=== PATIENT | male | born 1965 | race Caucasian/White ===

== ENCOUNTER 2016-09-22 11:18 | Emergency (ER) | payer OTHER ==
[2016-09-22] MEDS ORDERED: fentaNYL 100 MCG/2 ML SDV IVPUSH ONE ×3 (11:26→13:38)
[2016-09-22] MEDS ORDERED: Sodium Chloride 0.9% 10 ML Syringe FLUSH PRN (11:26)
--- NOTE | 2016-09-22 11:34 | EDM.PDOC ---
ED HPI LOWER BACK PAIN/INJURY - General Chief Complaint: Back Pain or Injury Stated Complaint: Fall, low back pain Time Seen by Provider: 09/22/16 11:20 Source of Information: Reports: Patient, RN notes reviewed History Limitations: Reports: No limitations - History of Present Illness INITIAL COMMENTS - FREE TEXT/NARRATIVE: 51 year old male presents to the ED via [facility] after a fall at home. He was ambulating on concrete and slipped. He fell directly onto his buttocks. He has pain to his low back. The pain does radiate into his upper back and into his right shoulder. The pain is excruciating and say "it shot pain up my back when I fell." He denies numbness, tingling, weakness or loss of bowel/bladder function. He has no hip pain. He is able to move both legs but was unable to get up and ambulate after the fall. He says he may have had a brief LOC but isn' t sure. He has no neck pain or headache. Denies hitting his head. He was given 200mcg of Fentanyl and 4mg of Versed [employer]. He continues to have severe amounts of pain and does feel he is experiencing muscle spasms. He is on high amounts of hydrocodone, gabapentin, and muscle relaxers due to chronic back and hip pain. He has a history of a "degenerative bone condition." He says he has not received a specific diagnosis but has required several surgeries. He has fusion of L4, L5, and S1 at [facility] and has had several hip surgeries in [place]. - Related Data Allergies/ADRs: Allergies Allergy/AdvReac Type Severity Reaction Status Date / Time hydromorphone [From Dilaudid] Allergy Hives Verified 09/22/16 11:31 levofloxacin [From Levaquin] Allergy Hives Verified 05/07/15 08:31 morphine Allergy Hives Verified 05/07/15 08:31 Home Meds: Home Meds Gabapentin [Neurontin] 800 mg PO TID 05/07/15 [History] buPROPion [Wellbutrin XL] 300 mg PO DAILY 05/07/15 [History] Methocarbamol 750 mg PO DAILY 09/22/16 [History] Past Medical History Other Cardiovascular History: Rheumatic fever in the 5th grade Other Gastrointestinal History: celiac disease Social & Family History - Tobacco Use Smoking Status *Q: Never Smoker - Recreational Drug Use Recreational Drug Use: No - Living Situation & Occupation Living situation: Reports: , with spouse, with family Occupation: employed ED ROS GENERAL - Review of Systems Review Of Systems: See Below Constitutional: Reports: no symptoms. Denies: fever, chills Respiratory: Reports: No Symptoms. Denies: Shortness of Breath Cardiovascular: Reports: No symptoms. Denies: Chest pain GI/Abdominal: Reports: No symptoms. Denies: Abdominal pain, Nausea, Vomiting : Reports: no symptoms. Denies: incontinence Musculoskeletal: Reports: back pain Neurological: Reports: No Symptoms. Denies: Numbness, Tingling, Weakness ED EXAM,LOWER BACK PAIN/INJURY - Physical Exam Exam: See Below Exam Limited By: No limitations General Appearance: alert, WD/WN, anxious, severe distress Respiratory/Chest: no respiratory distress, lungs clear, normal breath sounds Cardiovascular: regular rate, rhythm GI/Abdominal: normal bowel sounds, soft, non tender, no distention Back Exam: muscle spasm, paraspinal tenderness (low back ), vertebral tenderness (lumbar spine and SI joints ) Extremities: normal inspection, normal range of motion, other (moving bilateral legs without difficulty. No hip pain. CMS intact. ) Neurological: alert, normal mood/affect, normal dorsiflexion, normal plantar flexion, no motor/sensory deficits, oriented x 3 Skin Exam: Warm, Dry, Intact Course - Vital Signs Last Recorded V/S: Last Vital Signs Temp 97.8 F 09/22/16 11:27 Pulse 70 09/22/16 15:40 Resp 16 09/22/16 15:40 BP 119/91 H 09/22/16 15:40 Pulse Ox 98 09/22/16 15:40 - Orders/Labs/Meds Orders: Active Orders 24 hr Category Date Time Status Peripheral IV Care [RC] . DIRECTED Care 09/22/16 11:27 Active Peripheral IV Insertion Adult [OM.PC] Stat Oth 09/22/16 11:26 Ordered Meds: Medications Discontinued Medications Generic Name Dose Route Start Last Admin Trade Name Freq PRN Reason Stop Dose Admin Hydrocodone Bitart/Acetaminophen 2 tab 09/22/16 13:39 09/22/16 14:06 [place] 325-10 Mg PO 09/22/16 13:40 2 tab ONETIME ONE Administration Diazepam 5 mg 09/22/16 11:27 09/22/16 11:37 Valium IV 09/22/16 11:28 5 mg ONETIME ONE Administration Diazepam 5 mg 09/22/16 13:10 09/22/16 13:26 Valium IVPUSH 09/22/16 13:11 Not Given ONETIME ONE Diazepam 5 mg 09/22/16 13:15 09/22/16 13:20 Valium IVPUSH 09/22/16 13:16 5 mg ONETIME ONE Administration Fentanyl 100 mcg 09/22/16 11:26 09/22/16 11:33 Sublimaze IVPUSH 09/22/16 11:27 100 mcg ONETIME ONE Administration Fentanyl 100 mcg 09/22/16 12:23 09/22/16 12:32 Sublimaze IVPUSH 09/22/16 12:24 100 mcg ONETIME ONE Administration Fentanyl 100 mcg 09/22/16 13:38 09/22/16 13:50 Sublimaze IVPUSH 09/22/16 13:39 100 mcg ONETIME ONE Administration Gabapentin 200 mg 09/22/16 13:38 09/22/16 14:04 Neurontin PO 09/22/16 13:39 200 mg ONETIME ONE Administration Gabapentin 600 mg 09/22/16 14:00 09/22/16 14:05 Neurontin PO 09/22/16 14:01 600 mg ONETIME ONE Administration Methocarbamol 750 mg 09/22/16 13:38 09/22/16 14:03 Robaxin PO 09/22/16 13:39 750 mg ONETIME ONE Administration Sodium Chloride 10 ml 09/22/16 11:26 09/22/16 11:40 Saline Flush FLUSH 10 ml ASDIRECTED PRN Administration Keep Vein Open - Re-Assessments/Exams Free Text/Narrative Re-Assessment/Exam: 1330 CTs of thoracic spine, lumbar spine, and pelvis read by Dr. Quiroz. No acute findings found. Please see full reports. Patient notified of results. He has no concerning neurologic deficits. Patient has some relief with Fentanyl and Versed however the relief is very short. He is due for his chronic pain medications. Will administer his usual regimen of 10/325mg norco x2 tabs, 800mg gabapentin, and 750mg of robaxin. Will also give an additional dose of Fentayl at this time for immediate pain relief. Will continue to monitor the patient's pain level. Discussed admission if we are unable to get his pain to an acceptable level on oral medications. 1500 Patient reports that his pain has significantly improved. He has his back brace on and feels he is ready to be discharged. His home is handicapped accessible. He would is able to ambulate with tolerable pain. He was instructed to f/u with his pain specialist next week as scheduled. Educated on return precautions and encouraged to return if his pain worsens or develops signs of saddle anesthesia. He has a ride home. Departure - Departure Time of Disposition: 15:17 Disposition: Home, Self-Care 01 Condition: good Clinical Impression: Low back pain Qualifiers: Chronicity: acute Back pain laterality: midline Sciatica presence: without sciatica Qualified Code(s): M54.5 - Low back pain Instructions: Back Pain, Adult Referrals: Jayde De La Paz PA-C [Primary Care Provider] - Forms: ED Department Discharge Additional Instructions: Continue your current pain management regimen Follow-up with your pain specialist as scheduled Return to ER with worsening of pain, loss of bowel or bladder function, or any additional concerns Wear your back brace as directed. No driving today due to sedating medications given in the ED. - My Orders Last 24 Hours: My Active Orders 09/22/16 11:26 Peripheral IV Insertion Adult [OM.PC] Stat 09/22/16 11:27 Peripheral IV Care [RC] . DIRECTED - Assessment/Plan Last 24 Hours: My Active Orders 09/22/16 11:26 Peripheral IV Insertion Adult [OM.PC] Stat 09/22/16 11:27 Peripheral IV Care [RC] . DIRECTED
--- NOTE | 2016-09-22 12:32 | CT ---
CT lumbar spine Technique: Multiple axial sections through the lumbar spine were obtained. Reconstructed sagittal and coronal images were reviewed. Comparison: Previous MRI lumbar spine study of 11/27/08. Findings: Previous surgery is noted at L5-S1 with transpedicular screws. Increased density is seen within the disc at L5-S1 compatible with disc fixation. No fracture is seen within the lumbar spine. Slight circumferential disc bulge is seen with posterior disc having a plantar margin at L3-4. Minimal circumferential disc bulge is noted at L2-3 with posterior disc having a planar margin. Other disks are maintained. No central canal stenosis or neural foraminal stenosis is seen. Impression: 1. Previous surgery at L5-S1. Minimal degenerative change as noted above. Nothing acute is identified. Diagnostic code #2
--- NOTE | 2016-09-22 12:34 | CT ---
CT pelvis Technique: Multiple axial sections through the pelvis were obtained. Reconstructed coronal and sagittal images were reviewed. Findings: Artifact noted from bilateral hip prosthesis. Previous lower lumbar spine surgery is again seen. No fracture is identified. Impression: 1. Previous lumbar spine surgery as well as bilateral hip prosthesis. 2. Nothing acute is identified on CT study of the pelvis. Diagnostic code #2
--- NOTE | 2016-09-22 12:37 | CT ---
CT thoracic spine Technique: Multiple axial sections were obtained through the thoracic spine. Reconstructed coronal and sagittal images were reviewed. Findings: Mild scattered disc space narrowing and anterior endplate osteophytes are seen. No fracture is identified. No abnormal subluxation is seen. No neural foraminal stenosis or central canal stenosis is seen. Impression: 1. Mild disc space narrowing and endplate osteophytes are seen within the thoracic spine. 2. Nothing acute is identified. Diagnostic code #2
[2016-09-22] MEDS ORDERED: Gabapentin 300 MG Cap PO ONE (13:37)
[2016-09-22] MEDS ORDERED: Methocarbamol 500 MG Tab PO ONE (13:38)
[2016-09-22] MEDS ORDERED: Gabapentin 100 MG Cap PO ONE (13:38)
[2016-09-22] MEDS ORDERED: Acetaminophen/HYDROcodone 325-10 MG Tab PO ONE (13:39)
[2016-09-22] MEDS ORDERED: Gabapentin 600 MG Tab PO ONE (14:00)
[2016-09-22 15:49] VITALS: BP 119/91
== END 2016-09-22 15:40 | disposition home or self-care (01) ==
LOC: SUPCPDRO 11:18 → JD.ED 11:18
DX: M54.5 Low back pain (principal); Z88.1 Allergy status to other antibiotic agents; Z88.6 Allergy status to analgesic agent; Z79.899 Other long term (current) drug therapy; K90.0 Celiac disease; W18.39XA Other fall on same level, initial encounter
CPT/HCPCS: 72128; 72131; 72192; 96374; 96375; 96376; 99284; A9270; J3010; J3360; J7050

== ENCOUNTER 2021-04-21 14:45 | Emergency (ER) | payer BC ==
[2021-04-21 16:03] VITALS: BP 143/95; PULSE 82
--- NOTE | 2021-04-21 18:23 | EDM.PDOC ---
ED HPI GENERAL MEDICAL PROBLEM - General Chief Complaint: Trauma Stated Complaint: RUN OVE BISON COW Time Seen by Provider: 04/21/21 16:37 Source of Information: Reports: Patient History Limitations: Reports: No Limitations - History of Present Illness INITIAL COMMENTS - FREE TEXT/NARRATIVE: The patient presents with low back pain and left hip pain. 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 He hurt his low back and left hip. He did not hit his head or hurt his neck. He has no headache, neck pain, chest pain or abdominal pain. He has a history of hip replacements with revisions and fusion of his SI joint. It hurts to put any weight on his left leg. Onset: Sudden Duration: Day(s): (yesterday) Location: Reports: Back, Lower Extremity, Left Quality: Reports: Sharp Severity: Severe Improves with: Reports: Immobilization Worsens with: Reports: Movement Context: Reports: Trauma (Ran over by a cow buffalo) Associated Symptoms: Reports: No Other Symptoms Left Lower Back Pain Score (Numeric/FACES): 8 - Related Data Allergies Allergy/AdvReac Type Severity Reaction Status Date / Time hydromorphone [From Dilaudid] Allergy Hives Verified 04/21/21 16:03 levofloxacin [From Levaquin] Allergy Hives Verified 04/21/21 16:03 morphine Allergy Hives Verified 04/21/21 16:03 Home Meds: Home Meds Gabapentin [Neurontin] 800 mg PO TID 05/07/15 [History] buPROPion [Wellbutrin XL] 300 mg PO DAILY 05/07/15 [History] methocarbamoL [Methocarbamol] 750 mg PO DAILY 09/22/16 [History] Hydrocodone/Acetaminophen [HYDROcodone-Acetaminophen 10-325 MG] 04/21/21 [History] Nabumetone 500 mg PO 04/21/21 [History] Past Medical History Other Cardiovascular History: Rheumatic fever in the 5th grade Other Gastrointestinal History: celiac disease Psychiatric History: Reports: Depression, Developmental Delay - Past Surgical History Musculoskeletal Surgical History: Reports: Hip Replacement, Other (See Below) Other Musculoskeletal Surgeries/Procedures:: degenerative disease Social & Family History - Tobacco Use Tobacco Use Status *Q: Never Tobacco User - Caffeine Use Caffeine Use: Reports: Coffee - Living Situation & Occupation Living situation: Reports: , with Spouse, with Family Occupation: Employed Review of Systems - Review of Systems Review Of Systems: See Below Constitutional: Reports: No Symptoms Eyes: Reports: No Symptoms Ears: Reports: No Symptoms Nose: Reports: No Symptoms Mouth/Throat: Reports: No Symptoms Respiratory: Reports: No Symptoms Cardiovascular: Reports: No Symptoms GI/Abdominal: Reports: No Symptoms Genitourinary: Reports: No Symptoms Musculoskeletal: Reports: Back Pain (left lower back), Other (left hip pain) ED EXAM, GENERAL - Physical Exam Exam: See Below Exam Limited By: No Limitations General Appearance: Alert, No Apparent Distress Ears: Normal External Exam Nose: Normal Inspection Head: Atraumatic, Normocephalic Neck: Normal Inspection Respiratory/Chest: No Respiratory Distress, Lungs Clear, Normal Breath Sounds Cardiovascular: Regular Rate, Rhythm, No Edema, No Murmur GI/Abdominal: Soft, Non-Tender, No Organomegaly, No Mass Back Exam: Other (Pain upon palpation to the left lower back) Extremities: Other (Left hip pain upon palpation) Neurological: Alert, Oriented, No Motor/Sensory Deficits Course - Vital Signs Last Recorded V/S: Last Vital Signs Temp 98.5 F 04/21/21 15:59 Pulse 82 04/21/21 15:59 Resp 18 04/21/21 15:59 BP 143/95 H 04/21/21 15:59 Pulse Ox 96 04/21/21 15:59 - Orders/Labs/Meds Orders: Active Orders 24 hr Category Date Time Status Hip Min 2V or 3V w Pelvis Lt [CR] Stat Exams 04/21/21 16:44 Taken Lumbar Spine 2 or 3V [CR] Stat Exams 04/21/21 16:43 Taken - Re-Assessments/Exams Free Text/Narrative Re-Assessment/Exam: 04/21/21 18:22 I did x-rays of his low back, pelvis and left hip. There are no fractures. There is hardware that does not appear to have moved. He has orthopedic surgeons out of town. I made a copy of his x-rays. Departure - Departure Time of Disposition: 18:30 Disposition: Home, Self-Care 01 Condition: Good Clinical Impression: Left hip pain Left low back pain Qualifiers: Chronicity: acute Sciatica presence: without sciatica Qualified Code(s): M54.50 - Low back pain, unspecified - Discharge Information *PRESCRIPTION DRUG MONITORING PROGRAM REVIEWED*: Not Applicable *COPY OF PRESCRIPTION DRUG MONITORING REPORT IN PATIENT DESTIN: Not Applicable Referrals: Regina oCats, CLIENT RESOURCE SPECIALIST [Primary Care Provider] - Additional Instructions: Follow up with your orthopedic surgeon. Try to send him the x-rays. Take your medications as prescribed. Please return if you are worse. Follow up with a physical therapist in town. Sepsis Event Note (ED) - Evaluation Sepsis Screening Result: No Definite Risk - Focused Exam Vital Signs: Vital Signs Temp Pulse Resp BP Pulse Ox 04/21/21 15:59 98.5 F 82 18 143/95 H 96 - My Orders Last 24 Hours: My Active Orders 04/21/21 16:43 Lumbar Spine 2 or 3V [CR] Stat 04/21/21 16:44 Hip Min 2V or 3V w Pelvis Lt [CR] Stat - Assessment/Plan Last 24 Hours: My Active Orders 04/21/21 16:43 Lumbar Spine 2 or 3V [CR] Stat 04/21/21 16:44 Hip Min 2V or 3V w Pelvis Lt [CR] Stat
--- NOTE | 2021-04-22 05:58 | CR ---
Lumbar spine: AP and lateral views of the lumbar spine were obtained. Comparison: Prior lumbar spine plain film study of 02/09/17. Slight anterior wedging is noted of L3 which appears stable from prior study. Severe disc space narrowing is seen at L5-S1. Mild posterior disc space narrowing is scattered throughout the lumbar spine. Other vertebral body heights are maintained. Minimal scoliosis is noted. Screws are seen within the sacroiliac joints as well as bilateral hip prostheses. No acute fracture or subluxation is seen. Impression: 1. Stable anterior wedge deformity within L3. Mild degenerative change as noted above with slight scoliosis. 2. Stable orthopedic hardware. 3. No acute fracture or subluxation is seen. Diagnostic code #2
--- NOTE | 2021-04-22 05:59 | CR ---
Pelvis and left hip: AP view of the pelvis was obtained as well as AP and frog-leg lateral views of the left hip. Comparison: Prior pelvis exam of 11/13/18. Bilateral hip prostheses are noted which are normal in alignment. Screws are seen crossing the sacroiliac joints on both sides. Small amount of heterotopic bone is noted off the superior left hip which is stable. No acute fracture or subluxation is seen. Impression: 1. Orthopedic hardware is stable in position. 2. No acute bony abnormality is appreciated. Diagnostic code #2
== END 2021-04-21 19:00 | disposition home or self-care (01) ==
LOC: JD.ED 14:45
DX: M54.50 Low back pain, unspecified (principal); M25.552 Pain in left hip; Z88.5 Allergy status to narcotic agent; Z88.1 Allergy status to other antibiotic agents
CPT/HCPCS: 72100; 72100-26; 73502-26-LT; 73502-LT; 99283; 99283-25

== ENCOUNTER 2021-09-01 13:45 | Emergency (ER) | payer BC ==
[2021-09-01 13:49] VITALS: BP 108/73; PULSE 69
[2021-09-01] MEDS ORDERED: HYDROmorphone 0.5 MG/0.5 ML Syringe IVPUSH ONE ×2 (14:42→15:55)
[2021-09-01] MEDS ORDERED: Ondansetron 4 MG/2 ML SDV IVPUSH ONE (14:42)
[2021-09-01] MEDS ORDERED: Sodium Chloride 0.9% 1,000 ML IV SCH (14:45)
== END 2021-09-01 16:22 ==
LOC: JD.ED 13:45
DX: S31.31XA Laceration without foreign body of scrotum and testes, initial encounter (principal); E78.00 Pure hypercholesterolemia, unspecified; I10 Essential (primary) hypertension; Z88.5 Allergy status to narcotic agent; Z88.1 Allergy status to other antibiotic agents; Z79.899 Other long term (current) drug therapy; Z20.822 Contact with and (suspected) exposure to COVID-19; W00.0XXA Fall on same level due to ice and snow, initial encounter
CPT/HCPCS: 87635; 99285; J1170; J2405; J7030; 99284; U0002